=== PATIENT | male | born 1935 | race Caucasian/White ===

== ENCOUNTER 2023-06-07 05:13 | Inpatient (IN) | payer MEDICARE ==
[~2023-06-07] VITALS: Ht 182.9 cm; Wt 65.8 kg
[2023-06-07 05:30] VITALS: BP 109/43; TEMP 98.2; O2SAT 100
[2023-06-07] MEDS ORDERED: AMLO-212 PO (05:51)
[2023-06-07] MEDS ORDERED: LORA0.5T48 PO (05:51)
[2023-06-07] MEDS ORDERED: ALLO100T56 PO (05:51)
[2023-06-07] MEDS ORDERED: HYDR-894 PO (05:55)
[2023-06-07] MEDS ORDERED: FINA5TAB11 PO (05:55)
[2023-06-07] MEDS ORDERED: DIVA125C5 PO (05:55)
[2023-06-07] MEDS ORDERED: OMEP20TA5 PO (06:00)
[2023-06-07] MEDS ORDERED: OMEP40CA21 PO (06:00)
[2023-06-07] MEDS ORDERED: QUET50TA PO (06:00)
[2023-06-07] MEDS ORDERED: QUET25TA PO (06:00)
[2023-06-07] MEDS ORDERED: TAMS-3 PO (06:03)
[2023-06-07] MEDS ORDERED: MAGNESIUM HYDROXIDE 30 ML LIQUID UDC PO PRN (06:30)
[2023-06-07] MEDS ORDERED: MAG HYDROX/AL HYDROX/SIMETH 30 ML LIQUID UDC PO PRN (06:30)
[2023-06-07] MEDS ORDERED: BLOOD SUGAR DIAGNOSTIC 1 EACH STRIP VI ONE (06:30)
[2023-06-07 07:42] VITALS: BP 129/58; TEMP 98; O2SAT 97
[2023-06-07] MEDS ORDERED: hydrALAZINE HCL 25 MG TABLET PO PRN (09:15)
[2023-06-07] MEDS ORDERED: TEMAZEPAM 7.5 MG CAPSULE PO PRN (09:15)
[2023-06-07] MEDS: ACETAMINOPHEN 325 MG TABLET PO PRN (12:30)
[2023-06-07] MEDS: DIVALPROEX SPRINKLE 125 MG CAP.SPRINK PO SCH ×2 (12:30→17:28)
[2023-06-07] MEDS: LORAZEPAM 0.5 MG TABLET PO PRN ×2 (12:30→17:25)
[2023-06-07 16:28] VITALS: BP 114/54; TEMP 98; O2SAT 97
[2023-06-07 19:52] VITALS: BP 136/76; TEMP 98.2; O2SAT 96
[2023-06-07] MEDS: TAMSULOSIN HCL 0.4 MG CAP.SR.24H PO SCH (20:14)
[2023-06-07] MEDS: QUETIAPINE FUMARATE 25 MG TABLET PO SCH (20:14)
[2023-06-07] MEDS: CLONAZEPAM 0.5 MG TABLET PO PRN ×2 (21:25→21:32)
[2023-06-07] MEDS: TEMAZEPAM 7.5 MG CAPSULE PO PRN (23:24)
[2023-06-08] MEDS: LORAZEPAM 0.5 MG TABLET PO PRN (06:08)
[2023-06-08] MEDS: PANTOPRAZOLE SODIUM 40 MG TABLET.DR PO SCH (07:03)
[2023-06-08 07:05] LABS: ALANINE AMINOTRANSFERASE 30 U/L (16-63); ALKALINE PHOSPHATASE 123 U/L (50-136); ASPARTATE AMINOTRANSFERASE 33 U/L (15-37); BILIRUBIN,TOTAL 1.1 mg/dL (0.2-1.0); CALCIUM 8.5 mg/dL (8.5-10.1); CARBON DIOXIDE 28 mmol/L (21-32); CHLORIDE 105 mmol/L (98-107); CREATININE 1.3 mg/dL (0.6-1.3); GLUCOSE 110 mg/dL (74-106); POTASSIUM 3.5 mmol/L (3.5-5.1); SODIUM SERUM 139 mmol/L (136-145); TOTAL PROTEIN, SERUM 7.2 g/dL (6.4-8.2); UREA NITROGEN, BLOOD 19 mg/dL (7-18)
[2023-06-08 08:00] VITALS: BP 105/62; TEMP 97.4
[2023-06-08] MEDS ORDERED: Medication Not On Formulary EA (Omeprazole 1 TAB) PO SCH (09:00)
[2023-06-08] MEDS: DIVALPROEX SPRINKLE 125 MG CAP.SPRINK PO SCH ×3 (09:32→19:21)
[2023-06-08] MEDS: CLONAZEPAM 0.5 MG TABLET PO PRN ×2 (09:33→22:05)
[2023-06-08] MEDS: QUETIAPINE FUMARATE 25 MG TABLET PO SCH ×2 (09:33→20:38)
[2023-06-08] MEDS: ALLOPURINOL 100 MG TABLET PO SCH (09:33)
[2023-06-08] MEDS: AMLODIPINE 5 MG TABLET PO SCH (09:33)
[2023-06-08] MEDS: FINASTERIDE 5 MG TABLET PO SCH (09:33)
[2023-06-08 16:00] VITALS: BP 113/80; TEMP 98.5
[2023-06-08] MEDS: TAMSULOSIN HCL 0.4 MG CAP.SR.24H PO SCH (20:38)
[2023-06-09 00:16] VITALS: BP 100/55; TEMP 97.8; O2SAT 100
[2023-06-09] MEDS: TEMAZEPAM 7.5 MG CAPSULE PO PRN ×2 (00:26→20:38)
[2023-06-09] MEDS: LORAZEPAM 0.5 MG TABLET PO PRN ×2 (01:53→08:39)
[2023-06-09] MEDS: PANTOPRAZOLE SODIUM 40 MG TABLET.DR PO SCH (06:21)
[2023-06-09 08:00] VITALS: BP 123/54; TEMP 97.6
[2023-06-09] MEDS: FINASTERIDE 5 MG TABLET PO SCH (08:38)
[2023-06-09] MEDS: QUETIAPINE FUMARATE 25 MG TABLET PO SCH ×2 (08:38→20:38)
[2023-06-09] MEDS: AMLODIPINE 5 MG TABLET PO SCH (08:38)
[2023-06-09] MEDS: ALLOPURINOL 100 MG TABLET PO SCH (08:39)
[2023-06-09] MEDS: DIVALPROEX SPRINKLE 125 MG CAP.SPRINK PO SCH ×3 (08:39→16:22)
[2023-06-09] MEDS ORDERED: HALOPERIDOL LACTATE 5 MG/1 ML VIAL IM ONE (10:15)
[2023-06-09] MEDS ORDERED: LORAZEPAM 2 MG/1 ML VIAL IV ONE (10:15)
[2023-06-09] MEDS ORDERED: diphenhydrAMINE 50 MG/1 ML VIAL IM ONE (10:15)
[2023-06-09 16:00] VITALS: BP_SYST 121; BP_SYST 142; BP_DIAS 55; BP_DIAS 63; TEMP 98.1; O2SAT 100
[2023-06-09] MEDS: TAMSULOSIN HCL 0.4 MG CAP.SR.24H PO SCH (20:38)
[2023-06-09 21:17] VITALS: BP 142/51; TEMP 97.4; O2SAT 100
[2023-06-10] MEDS: LORAZEPAM 0.5 MG TABLET PO PRN ×3 (03:16→17:12)
[2023-06-10] MEDS: PANTOPRAZOLE SODIUM 40 MG TABLET.DR PO SCH (07:00)
[2023-06-10 08:00] VITALS: BP 122/63; TEMP 97.4
[2023-06-10] MEDS: QUETIAPINE FUMARATE 25 MG TABLET PO SCH ×3 (08:19→20:55)
[2023-06-10] MEDS: FINASTERIDE 5 MG TABLET PO SCH (08:19)
[2023-06-10] MEDS: DIVALPROEX SPRINKLE 125 MG CAP.SPRINK PO SCH ×3 (08:19→17:12)
[2023-06-10] MEDS: ALLOPURINOL 100 MG TABLET PO SCH (08:19)
[2023-06-10] MEDS: CLONAZEPAM 0.5 MG TABLET PO PRN (12:11)
[2023-06-10 17:22] VITALS: BP 122/65; TEMP 99
[2023-06-10] MEDS: TAMSULOSIN HCL 0.4 MG CAP.SR.24H PO SCH (20:54)
[2023-06-10] MEDS: TEMAZEPAM 7.5 MG CAPSULE PO PRN (22:38)
[2023-06-11] MEDS: CLONAZEPAM 0.5 MG TABLET PO PRN (01:34)
[2023-06-11] MEDS: LORAZEPAM 0.5 MG TABLET PO PRN (02:37)
[2023-06-11] MEDS: PANTOPRAZOLE SODIUM 40 MG TABLET.DR PO SCH (07:00)
[2023-06-11] MEDS ORDERED: CLONAZEPAM 0.5 MG TABLET PO PRN (07:15)
[2023-06-11] MEDS ORDERED: TEMAZEPAM 7.5 MG CAPSULE PO PRN (07:15)
[2023-06-11] MEDS ORDERED: HALOPERIDOL LACTATE 5 MG/1 ML VIAL IM ONE (07:45)
[2023-06-11] MEDS ORDERED: diphenhydrAMINE 50 MG/1 ML VIAL IM ONE (07:45)
[2023-06-11] MEDS ORDERED: LORAZEPAM 2 MG/1 ML VIAL IV ONE (07:45)
[2023-06-11 08:00] VITALS: BP 133/59; TEMP 97.2; O2SAT 99
[2023-06-11] MEDS: FINASTERIDE 5 MG TABLET PO SCH (10:00)
[2023-06-11] MEDS: ALLOPURINOL 100 MG TABLET PO SCH (10:00)
[2023-06-11] MEDS: QUETIAPINE FUMARATE 25 MG TABLET PO SCH ×3 (10:00→20:42)
[2023-06-11] MEDS: DIVALPROEX SPRINKLE 125 MG CAP.SPRINK PO SCH ×3 (10:01→16:27)
[2023-06-11] MEDS: NEOMY/BACITRAC/POLYMI OINT 28.35 GM TUBE TOP SCH (10:08)
[2023-06-11] MEDS: CLONAZEPAM 1 MG TABLET PO PRN ×2 (12:24→20:00)
[2023-06-11 16:00] VITALS: O2SAT 99
[2023-06-11 20:18] VITALS: BP 113/55; TEMP 97.5; O2SAT 99
[2023-06-11] MEDS: TAMSULOSIN HCL 0.4 MG CAP.SR.24H PO SCH (20:42)
[2023-06-11] MEDS: TEMAZEPAM 15 MG CAPSULE PO PRN (23:36)
[2023-06-12] MEDS: CLONAZEPAM 1 MG TABLET PO PRN ×2 (03:36→14:57)
[2023-06-12] MEDS: PANTOPRAZOLE SODIUM 40 MG TABLET.DR PO SCH (06:54)
[2023-06-12] MEDS ORDERED: chlorproMAZINE 50 MG/2 ML AMPUL IM ONE (07:30)
[2023-06-12] MEDS ORDERED: diphenhydrAMINE 50 MG/1 ML VIAL IV ONE (07:30)
[2023-06-12 08:00] VITALS: BP 127/50; TEMP 97.4; O2SAT 99
[2023-06-12] MEDS: DIVALPROEX SPRINKLE 125 MG CAP.SPRINK PO SCH ×3 (09:26→16:54)
[2023-06-12] MEDS: QUETIAPINE FUMARATE 25 MG TABLET PO SCH ×3 (09:26→21:03)
[2023-06-12] MEDS: NEOMY/BACITRAC/POLYMI OINT 28.35 GM TUBE TOP SCH (09:26)
[2023-06-12] MEDS: FINASTERIDE 5 MG TABLET PO SCH (09:26)
[2023-06-12] MEDS: ALLOPURINOL 100 MG TABLET PO SCH (09:27)
[2023-06-12] MEDS: ENSURE ENLIVE (VAN) 240 ML LIQUID PO SCH (09:28)
[2023-06-12] MEDS: ACETAMINOPHEN 325 MG TABLET PO PRN (09:38)
[2023-06-12] MEDS: TAMSULOSIN HCL 0.4 MG CAP.SR.24H PO SCH (21:03)
[2023-06-12] MEDS: TEMAZEPAM 15 MG CAPSULE PO PRN (22:05)
[2023-06-13] MEDS: CLONAZEPAM 1 MG TABLET PO PRN ×3 (03:42→15:10)
[2023-06-13] MEDS: PANTOPRAZOLE SODIUM 40 MG TABLET.DR PO SCH (06:19)
[2023-06-13] MEDS: ENSURE ENLIVE (VAN) 240 ML LIQUID PO SCH (09:00)
[2023-06-13 09:28] VITALS: BP 136/61; TEMP 97.8; O2SAT 100
[2023-06-13] MEDS: DIVALPROEX SPRINKLE 125 MG CAP.SPRINK PO SCH ×3 (09:50→17:30)
[2023-06-13] MEDS: ALLOPURINOL 100 MG TABLET PO SCH (09:50)
[2023-06-13] MEDS: FINASTERIDE 5 MG TABLET PO SCH (09:50)
[2023-06-13] MEDS: QUETIAPINE FUMARATE 25 MG TABLET PO SCH ×3 (09:50→20:42)
[2023-06-13] MEDS: NEOMY/BACITRAC/POLYMI OINT 28.35 GM TUBE TOP SCH (09:51)
[2023-06-13 16:00] VITALS: BP 110/53; TEMP 98.1; O2SAT 96
[2023-06-13 20:00] VITALS: BP 116/56; TEMP 97.5; O2SAT 100
[2023-06-13] MEDS: TAMSULOSIN HCL 0.4 MG CAP.SR.24H PO SCH (20:42)
[2023-06-13] MEDS: TEMAZEPAM 15 MG CAPSULE PO PRN (22:49)
[2023-06-14] MEDS: CLONAZEPAM 1 MG TABLET PO PRN ×2 (06:03→12:23)
[2023-06-14] MEDS: PANTOPRAZOLE SODIUM 40 MG TABLET.DR PO SCH (06:03)
[2023-06-14 07:47] VITALS: BP 153/64; TEMP 97.8; O2SAT 97
[2023-06-14] MEDS: DIVALPROEX SPRINKLE 125 MG CAP.SPRINK PO SCH ×3 (08:20→16:11)
[2023-06-14] MEDS: FINASTERIDE 5 MG TABLET PO SCH (08:20)
[2023-06-14] MEDS: QUETIAPINE FUMARATE 25 MG TABLET PO SCH ×3 (08:21→21:09)
[2023-06-14] MEDS: ALLOPURINOL 100 MG TABLET PO SCH (08:22)
[2023-06-14] MEDS: NEOMY/BACITRAC/POLYMI OINT 28.35 GM TUBE TOP SCH (08:22)
[2023-06-14] MEDS: ENSURE ENLIVE (VAN) 240 ML LIQUID PO SCH (08:29)
[2023-06-14 16:11] VITALS: BP 93/69; TEMP 97.5; O2SAT 96
[2023-06-14 20:00] VITALS: BP 131/60; TEMP 96; O2SAT 100
[2023-06-14] MEDS: TAMSULOSIN HCL 0.4 MG CAP.SR.24H PO SCH (21:09)
[2023-06-14] MEDS: TEMAZEPAM 15 MG CAPSULE PO PRN (23:45)
[2023-06-15] MEDS: CLONAZEPAM 1 MG TABLET PO PRN ×2 (01:00→08:17)
[2023-06-15] MEDS: PANTOPRAZOLE SODIUM 40 MG TABLET.DR PO SCH (07:13)
[2023-06-15 07:45] VITALS: BP 149/76; TEMP 98.2; O2SAT 97
[2023-06-15] MEDS: FINASTERIDE 5 MG TABLET PO SCH (08:07)
[2023-06-15] MEDS: QUETIAPINE FUMARATE 25 MG TABLET PO SCH ×3 (08:08→20:51)
[2023-06-15] MEDS: DIVALPROEX SPRINKLE 125 MG CAP.SPRINK PO SCH ×3 (08:08→16:26)
[2023-06-15] MEDS: ENSURE ENLIVE (VAN) 240 ML LIQUID PO SCH ×4 (08:09→16:29)
[2023-06-15] MEDS: NEOMY/BACITRAC/POLYMI OINT 28.35 GM TUBE TOP SCH (08:10)
[2023-06-15] MEDS: ALLOPURINOL 100 MG TABLET PO SCH (08:10)
[2023-06-15 09:46] LABS: BASOPHILS % (AUTO) 0.2 % (0.0-2.0); EOSINOPHILS # (AUTO) 0.1 K/uL (0.0-0.7); EOSINOPHILS % (AUTO) 2.7 % (0.0-7.0); HEMATOCRIT 31.3 % (36.7-47.1); HEMOGLOBIN 10.1 g/dL (12.5-16.3); LYMPHOCYTES # (AUTO) 0.8 K/uL (0.8-4.8); LYMPHOCYTES % (AUTO) 17.6 % (20.5-51.5); MEAN CORPUSCULAR HEMOGLOBIN 26.7 uug (23.8-33.4); MEAN CORPUSCULAR HGB CONC 32 g/dL (32.5-36.3); MEAN CORPUSCULAR VOLUME 82.9 fL (73.0-96.2); MONOCYTES # (AUTO) 0.5 K/uL (0.1-1.30); MONOCYTES % (AUTO) 10.9 % (0.0-11.0); NEUTROPHILS # (AUTO) 3.2 K/uL (1.8-8.9); NEUTROPHILS % (AUTO) 68.6 % (38.5-71.5); PLATELET COUNT (AUTO) 85 K/uL (152-348); RED BLOOD CELL COUNT(AUTO) 3.78 MIL/uL (4.06-5.63); RED CELL DISTRIBUTION WIDTH 20.1 % (12.1-16.2); WHITE BLOOD COUNT (AUTO) 4.7 K/uL (3.6-10.2)
[2023-06-15 09:56] LABS: CARBON DIOXIDE 28 mmol/L (21-32); CHLORIDE 108 mmol/L (98-107); CREATININE 1.4 mg/dL (0.6-1.3); GLUCOSE 137 mg/dL (74-106); POTASSIUM 3.9 mmol/L (3.5-5.1); SODIUM SERUM 142 mmol/L (136-145); UREA NITROGEN, BLOOD 25 mg/dL (7-18)
[2023-06-15 09:57] LABS: DIFFERENTIAL COMMENT 1
[2023-06-15 10:54] LABS: CALCIUM 8.9 mg/dL (8.5-10.1)
[2023-06-15 17:14] VITALS: BP 133/58; TEMP 98; O2SAT 97
[2023-06-15 20:00] VITALS: BP 115/55; TEMP 97.2; O2SAT 96
[2023-06-15] MEDS: TAMSULOSIN HCL 0.4 MG CAP.SR.24H PO SCH (20:51)
[2023-06-15] MEDS: TEMAZEPAM 15 MG CAPSULE PO PRN (23:45)
[2023-06-16] MEDS: CLONAZEPAM 1 MG TABLET PO PRN ×2 (01:49→09:19)
[2023-06-16] MEDS: PANTOPRAZOLE SODIUM 40 MG TABLET.DR PO SCH (06:28)
[2023-06-16 07:30] VITALS: BP 145/76; TEMP 98.4; O2SAT 98
[2023-06-16] MEDS: ACETAMINOPHEN 325 MG TABLET PO PRN (07:44)
[2023-06-16 07:53] VITALS: BP 145/74; TEMP 98.4; O2SAT 98
[2023-06-16] MEDS: DIVALPROEX SPRINKLE 125 MG CAP.SPRINK PO SCH ×3 (08:13→17:24)
[2023-06-16] MEDS: FINASTERIDE 5 MG TABLET PO SCH (08:13)
[2023-06-16] MEDS: NEOMY/BACITRAC/POLYMI OINT 28.35 GM TUBE TOP SCH (08:14)
[2023-06-16] MEDS: ALLOPURINOL 100 MG TABLET PO SCH (08:14)
[2023-06-16] MEDS: ENSURE ENLIVE (VAN) 240 ML LIQUID PO SCH ×3 (08:16→17:27)
[2023-06-16] MEDS ORDERED: QUETIAPINE FUMARATE 25 MG TABLET PO SCH (09:00)
[2023-06-16] MEDS: OLANZAPINE ZYDIS 5 MG TAB.RAPDIS PO SCH ×2 (09:53→17:24)
[2023-06-16 15:08] VITALS: BP 141/69; TEMP 98; O2SAT 99
[2023-06-16 20:00] VITALS: BP 121/57; TEMP 98.1; O2SAT 91
[2023-06-16] MEDS: TAMSULOSIN HCL 0.4 MG CAP.SR.24H PO SCH (20:44)
[2023-06-16] MEDS: QUETIAPINE FUMARATE 25 MG TABLET PO SCH (20:44)
[2023-06-16] MEDS: TEMAZEPAM 15 MG CAPSULE PO PRN (22:20)
[2023-06-17] MEDS: CLONAZEPAM 1 MG TABLET PO PRN ×2 (02:09→15:21)
[2023-06-17] MEDS: PANTOPRAZOLE SODIUM 40 MG TABLET.DR PO SCH (06:35)
[2023-06-17 08:06] VITALS: BP 169/75; TEMP 98.2; O2SAT 98
[2023-06-17] MEDS: ALLOPURINOL 100 MG TABLET PO SCH (08:46)
[2023-06-17] MEDS: FINASTERIDE 5 MG TABLET PO SCH (08:46)
[2023-06-17] MEDS: DIVALPROEX SPRINKLE 125 MG CAP.SPRINK PO SCH ×3 (08:46→16:57)
[2023-06-17] MEDS: OLANZAPINE ZYDIS 5 MG TAB.RAPDIS PO SCH ×2 (08:46→16:57)
[2023-06-17] MEDS: ENSURE ENLIVE (VAN) 240 ML LIQUID PO SCH ×3 (08:49→16:58)
[2023-06-17] MEDS: NEOMY/BACITRAC/POLYMI OINT 28.35 GM TUBE TOP SCH (09:15)
[2023-06-17] MEDS: AMLODIPINE 5 MG TABLET PO SCH ×2 (12:05→16:58)
[2023-06-17 15:08] VITALS: BP 120/54; TEMP 98; O2SAT 100
[2023-06-17 20:00] VITALS: BP 140/61; TEMP 98.1; O2SAT 99
[2023-06-17] MEDS: TAMSULOSIN HCL 0.4 MG CAP.SR.24H PO SCH (20:09)
[2023-06-17] MEDS: QUETIAPINE FUMARATE 25 MG TABLET PO SCH (20:10)
[2023-06-17] MEDS: TEMAZEPAM 15 MG CAPSULE PO PRN (22:17)
[2023-06-18] MEDS: PANTOPRAZOLE SODIUM 40 MG TABLET.DR PO SCH (06:27)
[2023-06-18 07:54] VITALS: BP 134/66; TEMP 98.2; O2SAT 99
[2023-06-18] MEDS: DIVALPROEX SPRINKLE 125 MG CAP.SPRINK PO SCH ×3 (10:43→16:54)
[2023-06-18] MEDS: OLANZAPINE ZYDIS 5 MG TAB.RAPDIS PO SCH ×2 (10:44→16:54)
[2023-06-18] MEDS: FINASTERIDE 5 MG TABLET PO SCH (10:45)
[2023-06-18] MEDS: AMLODIPINE 5 MG TABLET PO SCH ×2 (10:46→16:54)
[2023-06-18] MEDS: CLONAZEPAM 1 MG TABLET PO PRN ×2 (10:57→23:17)
[2023-06-18] MEDS: ACETAMINOPHEN 325 MG TABLET PO PRN (10:59)
[2023-06-18] MEDS: ALLOPURINOL 100 MG TABLET PO SCH (10:59)
[2023-06-18] MEDS: ENSURE ENLIVE (VAN) 240 ML LIQUID PO SCH ×3 (12:14→14:38)
[2023-06-18] MEDS: NEOMY/BACITRAC/POLYMI OINT 28.35 GM TUBE TOP SCH (12:15)
[2023-06-18 15:22] VITALS: BP 100/71; TEMP 98; O2SAT 98
[2023-06-18] MEDS: QUETIAPINE FUMARATE 25 MG TABLET PO SCH (20:25)
[2023-06-18] MEDS: TAMSULOSIN HCL 0.4 MG CAP.SR.24H PO SCH (20:25)
[2023-06-18] MEDS: TEMAZEPAM 15 MG CAPSULE PO PRN ×2 (22:02→22:16)
[2023-06-19] MEDS: PANTOPRAZOLE SODIUM 40 MG TABLET.DR PO SCH (06:13)
[2023-06-19] MEDS: CLONAZEPAM 1 MG TABLET PO PRN ×2 (07:50→12:17)
[2023-06-19 07:52] VITALS: BP 159/99; TEMP 98; O2SAT 98
[2023-06-19] MEDS: OLANZAPINE ZYDIS 5 MG TAB.RAPDIS PO SCH ×2 (08:28→16:24)
[2023-06-19] MEDS: AMLODIPINE 5 MG TABLET PO SCH ×2 (08:28→16:24)
[2023-06-19] MEDS: DIVALPROEX SPRINKLE 125 MG CAP.SPRINK PO SCH ×3 (08:28→16:24)
[2023-06-19] MEDS: FINASTERIDE 5 MG TABLET PO SCH (08:28)
[2023-06-19] MEDS: ALLOPURINOL 100 MG TABLET PO SCH (08:30)
[2023-06-19] MEDS: ENSURE ENLIVE (VAN) 240 ML LIQUID PO SCH (09:01)
[2023-06-19] MEDS: NEOMY/BACITRAC/POLYMI OINT 28.35 GM TUBE TOP SCH (09:01)
[2023-06-19] MEDS: ACETAMINOPHEN 325 MG TABLET PO PRN (12:18)
[2023-06-19 15:55] VITALS: BP 176/99; TEMP 98; O2SAT 98
[2023-06-19 19:45] VITALS: BP 109/52; TEMP 97.4; O2SAT 97
[2023-06-19] MEDS: QUETIAPINE FUMARATE 25 MG TABLET PO SCH (20:21)
[2023-06-19] MEDS: TAMSULOSIN HCL 0.4 MG CAP.SR.24H PO SCH (20:21)
[2023-06-19] MEDS: REMEDY ESSENTIAL ZINC PASTE 113 GM TOP PRN (21:23)
[2023-06-19] MEDS: TEMAZEPAM 15 MG CAPSULE PO PRN (21:50)
[2023-06-20] MEDS: PANTOPRAZOLE SODIUM 40 MG TABLET.DR PO SCH (06:01)
[2023-06-20] MEDS: REMEDY ESSENTIAL ZINC PASTE 113 GM TOP PRN (06:34)
[2023-06-20 07:55] VITALS: BP 129/68; TEMP 97.7; O2SAT 96
[2023-06-20] MEDS: ENSURE ENLIVE (VAN) 240 ML LIQUID PO SCH (09:00)
[2023-06-20] MEDS: DIVALPROEX SPRINKLE 125 MG CAP.SPRINK PO SCH ×3 (09:38→17:05)
[2023-06-20] MEDS: AMLODIPINE 5 MG TABLET PO SCH ×2 (09:38→17:06)
[2023-06-20] MEDS: ALLOPURINOL 100 MG TABLET PO SCH (09:39)
[2023-06-20] MEDS: NEOMY/BACITRAC/POLYMI OINT 28.35 GM TUBE TOP SCH (09:39)
[2023-06-20] MEDS: FINASTERIDE 5 MG TABLET PO SCH (09:39)
[2023-06-20] MEDS: OLANZAPINE ZYDIS 5 MG TAB.RAPDIS PO SCH ×2 (09:39→17:04)
[2023-06-20 16:23] VITALS: BP 128/88; TEMP 97.8; O2SAT 97
[2023-06-20] MEDS: TAMSULOSIN HCL 0.4 MG CAP.SR.24H PO SCH (21:02)
[2023-06-20] MEDS: QUETIAPINE FUMARATE 25 MG TABLET PO SCH (21:03)
[2023-06-20] MEDS: CLONAZEPAM 1 MG TABLET PO PRN (22:28)
[2023-06-21] MEDS: TEMAZEPAM 15 MG CAPSULE PO PRN ×2 (02:02→23:19)
[2023-06-21] MEDS: PANTOPRAZOLE SODIUM 40 MG TABLET.DR PO SCH (06:27)
[2023-06-21 08:00] VITALS: BP 119/52; TEMP 98; O2SAT 96
[2023-06-21] MEDS: ENSURE ENLIVE (VAN) 240 ML LIQUID PO SCH (09:00)
[2023-06-21] MEDS: DIVALPROEX SPRINKLE 125 MG CAP.SPRINK PO SCH ×3 (09:07→17:53)
[2023-06-21] MEDS: FINASTERIDE 5 MG TABLET PO SCH (09:07)
[2023-06-21] MEDS: OLANZAPINE ZYDIS 5 MG TAB.RAPDIS PO SCH ×2 (09:07→17:54)
[2023-06-21] MEDS: ALLOPURINOL 100 MG TABLET PO SCH (09:07)
[2023-06-21] MEDS: AMLODIPINE 5 MG TABLET PO SCH ×2 (09:08→17:00)
[2023-06-21] MEDS: NEOMY/BACITRAC/POLYMI OINT 28.35 GM TUBE TOP SCH (09:09)
[2023-06-21] MEDS: CLONAZEPAM 1 MG TABLET PO PRN ×2 (12:39→20:04)
[2023-06-21 16:51] VITALS: BP 98/65; TEMP 98; O2SAT 96
[2023-06-21 20:00] VITALS: BP 94/71; TEMP 98; O2SAT 99
[2023-06-21] MEDS: TAMSULOSIN HCL 0.4 MG CAP.SR.24H PO SCH (21:01)
[2023-06-21] MEDS: QUETIAPINE FUMARATE 25 MG TABLET PO SCH (21:02)
[2023-06-22] MEDS: CLONAZEPAM 1 MG TABLET PO PRN ×2 (05:00→12:54)
[2023-06-22] MEDS: ACETAMINOPHEN 325 MG TABLET PO PRN (05:01)
[2023-06-22] MEDS: PANTOPRAZOLE SODIUM 40 MG TABLET.DR PO SCH (06:13)
[2023-06-22 07:47] LABS: BASOPHILS % (AUTO) 0.1 % (0.0-2.0); EOSINOPHILS # (AUTO) 0.1 K/uL (0.0-0.7); EOSINOPHILS % (AUTO) 3.1 % (0.0-7.0); HEMOGLOBIN 9.8 g/dL (12.5-16.3); LYMPHOCYTES # (AUTO) 0.7 K/uL (0.8-4.8); LYMPHOCYTES % (AUTO) 19.4 % (20.5-51.5); MEAN CORPUSCULAR HEMOGLOBIN 26.7 uug (23.8-33.4); MEAN CORPUSCULAR HGB CONC 33 g/dL (32.5-36.3); MEAN CORPUSCULAR VOLUME 81.6 fL (73.0-96.2); MONOCYTES # (AUTO) 0.4 K/uL (0.1-1.30); MONOCYTES % (AUTO) 11.4 % (0.0-11.0); NEUTROPHILS # (AUTO) 2.5 K/uL (1.8-8.9); PLATELET COUNT (AUTO) 68 K/uL (152-348); RED BLOOD CELL COUNT(AUTO) 3.67 MIL/uL (4.06-5.63); RED CELL DISTRIBUTION WIDTH 19.4 % (12.1-16.2); WHITE BLOOD COUNT (AUTO) 3.8 K/uL (3.6-10.2)
[2023-06-22 07:52] VITALS: BP 99/53; TEMP 97.7; O2SAT 96
[2023-06-22 08:22] LABS: DIFFERENTIAL COMMENT 1
[2023-06-22] MEDS: ALLOPURINOL 100 MG TABLET PO SCH (08:31)
[2023-06-22] MEDS: DIVALPROEX SPRINKLE 125 MG CAP.SPRINK PO SCH ×3 (08:31→16:44)
[2023-06-22] MEDS: OLANZAPINE ZYDIS 5 MG TAB.RAPDIS PO SCH ×2 (08:31→16:44)
[2023-06-22] MEDS: FINASTERIDE 5 MG TABLET PO SCH (08:31)
[2023-06-22] MEDS: NEOMY/BACITRAC/POLYMI OINT 28.35 GM TUBE TOP SCH (08:32)
[2023-06-22] MEDS: AMLODIPINE 5 MG TABLET PO SCH ×2 (08:32→16:44)
[2023-06-22] MEDS: ENSURE ENLIVE (VAN) 240 ML LIQUID PO SCH (08:32)
[2023-06-22 08:38] LABS: CALCIUM 8.8 mg/dL (8.5-10.1); CREATININE 1.2 mg/dL (0.6-1.3); POTASSIUM 3.6 mmol/L (3.5-5.1)
[2023-06-22] MEDS: REMEDY ESSENTIAL ZINC PASTE 113 GM TOP PRN ×2 (09:35→20:49)
[2023-06-22 14:39] LABS: ANISOCYTOSIS 2+; EOSINOPHILS % (MANUAL) 1 % (0-8); LYMPHOCYTES % (MANUAL) 13 % (20-40); MONOCYTES % (MANUAL) 6 % (2-10); NEUTROPHILS % (MANUAL) 80 % (42-75); PLATELET ESTIMATE MARKED DECREASED
[2023-06-22 14:40] LABS: HYPOCHROMASIA 1+
[2023-06-22 16:36] VITALS: BP 120/72; TEMP 97.8; O2SAT 96
[2023-06-22] MEDS: TAMSULOSIN HCL 0.4 MG CAP.SR.24H PO SCH (20:22)
[2023-06-22] MEDS: QUETIAPINE FUMARATE 25 MG TABLET PO SCH (20:23)
[2023-06-22] MEDS: TEMAZEPAM 15 MG CAPSULE PO PRN (22:25)
[2023-06-23] MEDS: PANTOPRAZOLE SODIUM 40 MG TABLET.DR PO SCH (06:36)
[2023-06-23 07:30] VITALS: BP 134/64; TEMP 98; O2SAT 98
[2023-06-23] MEDS: FINASTERIDE 5 MG TABLET PO SCH (08:55)
[2023-06-23] MEDS: OLANZAPINE ZYDIS 5 MG TAB.RAPDIS PO SCH ×2 (08:55→16:12)
[2023-06-23] MEDS: AMLODIPINE 5 MG TABLET PO SCH ×2 (08:55→16:14)
[2023-06-23] MEDS: DIVALPROEX SPRINKLE 125 MG CAP.SPRINK PO SCH ×3 (08:56→16:13)
[2023-06-23] MEDS: NEOMY/BACITRAC/POLYMI OINT 28.35 GM TUBE TOP SCH (08:56)
[2023-06-23] MEDS: ENSURE ENLIVE (VAN) 240 ML LIQUID PO SCH (08:56)
[2023-06-23] MEDS: ALLOPURINOL 100 MG TABLET PO SCH (08:58)
[2023-06-23] MEDS: CLONAZEPAM 1 MG TABLET PO PRN ×2 (12:22→23:28)
[2023-06-23 15:38] VITALS: BP 113/77; TEMP 98; O2SAT 98
[2023-06-23 20:00] VITALS: BP 109/84; TEMP 98; O2SAT 100
[2023-06-23] MEDS: QUETIAPINE FUMARATE 25 MG TABLET PO SCH (20:32)
[2023-06-23] MEDS: TAMSULOSIN HCL 0.4 MG CAP.SR.24H PO SCH (20:32)
[2023-06-23] MEDS: TEMAZEPAM 15 MG CAPSULE PO PRN (21:59)
[2023-06-24] MEDS: PANTOPRAZOLE SODIUM 40 MG TABLET.DR PO SCH (06:23)
[2023-06-24] MEDS: CLONAZEPAM 1 MG TABLET PO PRN ×2 (07:08→13:19)
[2023-06-24 07:30] VITALS: BP 146/74; TEMP 98.2; O2SAT 98
[2023-06-24] MEDS: OLANZAPINE ZYDIS 5 MG TAB.RAPDIS PO SCH (08:34)
[2023-06-24] MEDS: FINASTERIDE 5 MG TABLET PO SCH (08:34)
[2023-06-24] MEDS: DIVALPROEX SPRINKLE 125 MG CAP.SPRINK PO SCH ×2 (08:34→13:20)
[2023-06-24 08:35] VITALS: BP 146/74
[2023-06-24] MEDS: ALLOPURINOL 100 MG TABLET PO SCH (08:35)
[2023-06-24] MEDS: AMLODIPINE 5 MG TABLET PO SCH (08:35)
[2023-06-24] MEDS: ENSURE ENLIVE (VAN) 240 ML LIQUID PO SCH (08:35)
[2023-06-24] MEDS: NEOMY/BACITRAC/POLYMI OINT 28.35 GM TUBE TOP SCH (08:36)
== END 2023-06-24 14:45 | DRG 885 ==
LOC: GPS 05:19
PROVIDERS: ADMIT Psychiatry & Neurology Psychiatry; ATTEND Internal Medicine
DX: F20.9 Schizophrenia, unspecified (principal); N17.9 Acute kidney failure, unspecified; F03.94 Unspecified dementia, unspecified severity, with anxiety; F03.93 Unspecified dementia, unspecified severity, with mood disturbance; F03.918 Unspecified dementia, unspecified severity, with other behavioral disturbance; N40.0 Benign prostatic hyperplasia without lower urinary tract symptoms; I48.91 Unspecified atrial fibrillation; F32.A Depression, unspecified; M10.9 Gout, unspecified; Z20.822 Contact with and (suspected) exposure to COVID-19; F29 Unspecified psychosis not due to a substance or known physiological condition; Z73.6 Limitation of activities due to disability; M62.81 Muscle weakness (generalized); F41.9 Anxiety disorder, unspecified; Z79.899 Other long term (current) drug therapy; I12.9 Hypertensive chronic kidney disease with stage 1 through stage 4 chronic kidney disease, or unspecified chronic kidney disease
CPT/HCPCS: 36415; 70030-TC; 80164; 85025; J1200; J1630; J2060; J3230; J8499